=== PATIENT | male | born 1965 | race Caucasian/White ===

== ENCOUNTER → 2016-05-02 | Outpatient (CLI) | payer BC, OTHER ==
[~2016-05-02] MED LIST: ALBUAER2 INH; ALL300 PO; AMLO-110 PO; ASPI325T45 PO; ATOR-22 PO; COEN1CAP37 PO; FENO1TAB PO; FURO-85 PO; MULTTAB58 PO; OMEG5CAP PO; SOTA80TA PO
== END | disposition home or self-care (01) ==
LOC: C.LABMFLN 07:47
PROVIDERS: ATTEND Family Medicine
DX: R30.0 Dysuria (principal)

== ENCOUNTER 2016-07-09 07:21 | Day surgery (SDC) | payer BC ==
[2016-07-09] VITALS (11 sets, daily range): BP systolic 136–155; BP diastolic 65–91; PULSE 67–88; TEMP 36.7–37.1; O2SAT 94–98; Ht 175.3 cm; Wt 131.7 kg
[~2016-07-09] VITALS: Ht 175.3 cm; Wt 131.7 kg
--- NOTE | 2016-07-09 09:57 | DIAGNOSTIC IMAGING REPORT ---
FLUOROSCOPICALLY GUIDED LUMBAR MYELOGRAM CLINICAL HISTORY: Right-sided hip pain. FLUOROSCOPY TIME: 0.5 minutes. A single fluoroscopic spot image. PROCEDURE: The procedure, risks and benefits were discussed with the patient including the risk of spinal headache, bleeding and infection. The patient agreed to the procedure and informed written consent was obtained. The procedure was performed by Dr. Greenwood following a timeout. The left L3-L4 interlaminar space was targeted. Skin overlying the space was prepped and draped in the usual sterile fashion and local anesthesia was achieved with 1% lidocaine. Under intermittent fluoroscopic guidance, a 20-gauge x 3 1/2 in. Sprotte needle was inserted into the thecal sac. A total of 10 cc of Isovue-M 200 was injected into the thecal sac. The patient tolerated the procedure well. There were no immediate complications. IMPRESSION: Successful fluoroscopic guided lumbar mammogram. No immediate complications. Electronically signed by: Lele Greenwood M.D. 07/09/2016 9:55 AM Dictated Date/Time: 07/09/2016 9:54 AM
--- NOTE | 2016-07-09 09:58 | Discharge Instructions ---
Discharge Instructions Procedure Procedure Date: Jul 09, 2016. Reason for visit: Spinal Stenosis. Discharge Discharge Date: Jul 09, 2016. Discharge Diagnosis: same Instructions Activity Recommendations: No limitations Return to School/Work: no limitations Recommended Home Diet: Resume Previous Diet Provider Instructions: ACTIVITY RECOMMENDATIONS: * Rest today. * Resume regular activity in one day. MEDICATIONS: * May take Tylenol or Ibuprofen as needed for pain. DIET: * Resume previous diet. SPECIAL CARE INSTRUCTIONS: Call your doctor if: * Temperature above 101 degrees F. * Pain not relieved by pain medicine ordered. * Increased drainage or redness from incision. * Notify your doctor with any questions or concerns. Call your doctor or go to the nearest Emergency Department if you experience: * Increased chest pain or shortness of breath. FOLLOW UP VISIT: Follow-up with Referring Physician as scheduled. Allergies Coded Allergies: No Known Allergies (Verified , 07/09/16) Jaylyn Franks Recommendations: Call your doctor if: * Temperature above 101 degrees * Pain not relieved by pain medicine ordered * There is increased drainage or redness from any incision * You have any unanswered questions or concerns. Your Doctors Instructions noted above were prepared by provider Lele Greenwood. Patient Signature Section: Patient Instructions Signature Page Lakhwinder Galloway Patient (or Guardian) Signature/Date: I have read and understand the instructions given to me by my caregivers. Caregiver/RN/Doctor Signature/Date: The above-named patient and/or guardian has received patient instructions on this date. + Original Patient Signature Page (only) stays with chart. Please make copy for patient.
[2016-07-09] MEDS ORDERED: ACETAMINOPHEN 500 MG TAB PO PRN (10:00)
--- NOTE | 2016-07-09 10:29 | DIAGNOSTIC IMAGING REPORT ---
LUMBAR SPINE CT MYELOGRAM HISTORY: Postop. Right hip pain. TECHNIQUE: Multiaxial CT images of the lumbar spine were performed following the intrathecal injection of contrast and reformatted in the sagittal and coronal plane. COMPARISON: Lumbar spine radiograph 11/24/2015. Lumbar spine MRI 02/03/2015. FINDINGS: For the purpose of the report the L5-S1 disc space will be located on axial image 311 of [id number]. Mild dextroscoliosis, unchanged. No fracture or subluxation. Small endplate osteophytes seen throughout the lumbar spine. Moderate disc space narrowing at L5-S1. 2 mm of anterolisthesis of L4 on L5, unchanged. L4 and L5 laminectomies. Mild degenerative changes within the bilateral sacroiliac joints. The visualized retroperitoneal soft tissues are unremarkable. The conus terminates at the T12 level. Mild to moderate facet degenerative changes seen within the lower lumbar spine. L1-L2: Tiny broad-based posterior disc bulge without significant central canal or neural foraminal narrowing. L2-L3: Tiny broad-based posterior disc bulge without significant central canal or neural foraminal narrowing. L3-L4: No disc herniations. Bilateral facet hypertrophy and ligamentum hypertrophy results in mild central canal narrowing. No neural foraminal narrowing. L4-L5: Small broad-based posterior disc bulge. No significant central canal narrowing due to the posterior decompression. Mild bilateral neural foraminal narrowing. L5-S1: No significant central canal narrowing due to the posterior decompression. Moderate bilateral neural foraminal narrowing due to the facet hypertrophy and disc bulge. IMPRESSION: 1. Postoperative changes consistent with L4 and L5 laminectomies. 2. Moderate bilateral neural foraminal narrowing at L5-S1. Mild bilateral neural foraminal narrowing at L4-L5. 3. Mild central canal narrowing at L3-L4. 4. Mild dextroscoliosis. 5. Grade I anterolisthesis of L4 and L5. Electronically signed by: Lele Greenwood M.D. 07/09/2016 10:27 AM Dictated Date/Time: 07/09/2016 10:12 AM
== END 2016-07-09 14:25 | disposition home or self-care (01) ==
LOC: C.ACU 07:21
PROVIDERS: ATTEND Orthopaedic Surgery Orthopaedic Surgery of the Spine
DX: M48.06 Spinal stenosis, lumbar region (principal)

== ENCOUNTER → 2016-07-24 | Outpatient (CLI) | payer BC ==
[2016-07-24 13:25] LABS: ALT/SGPT 25 U/L (12-78); BLOOD UREA NITROGEN 17 mg/dl (7-18); BUN/CREATININE RATIO 17.7 (10-20); CARBON DIOXIDE 28 mmol/L (21-32); CHLORIDE 105 mmol/L (98-107); CHOLESTEROL 118 mg/dl (0-200); CHOLESTEROL/HDL RATIO 3.4; CREATININE 0.97 mg/dl (0.60-1.40); GLUCOSE 129 mg/dl (70-99); HDL CHOLESTEROL 35 mg/dl; LDL CHOLESTEROL CALCULATED 24 mg/dl; POTASSIUM 4.3 mmol/L (3.5-5.1); SODIUM 139 mmol/L (136-145); TRIGLYCERIDES 293 mg/dl (0-150); URIC ACID 5.6 mg/dl (2.6-7.2); VERY LOW DENSITY LIPOPROT CALC 59 mg/dl
[2016-07-24 13:31] LABS: ALB/GLOB RATIO 1.2 (0.9-2); ALKALINE PHOSPHATASE 42 U/L (45-117); AST/SGOT 11 U/L (15-37)
[2016-07-24 13:53] LABS: CALCIUM 9.7 mg/dl (8.5-10.1)
[2016-07-24 14:45] LABS: ESTIMATED AVERAGE GLUCOSE 148 mg/dl; HA1C FLAG Normal (Normal)
== END | disposition home or self-care (01) ==
LOC: C.LABMFLN 10:19
PROVIDERS: ATTEND Family Medicine
DX: I48.0 Paroxysmal atrial fibrillation (principal); I89.0 Lymphedema, not elsewhere classified

== ENCOUNTER → 2016-07-26 | Outpatient (CLI) | payer BC | END | disposition home or self-care (01) | LOC: C.LABMFLN 09:40 | PROVIDERS: ATTEND Family Medicine | DX: E11.9 Type 2 diabetes mellitus without complications (principal) ==

== ENCOUNTER → 2017-07-30 | Outpatient (CLI) | payer BC ==
[~2017-07-30] MED LIST changes: +ASPECOTC PO; -ASPI325T45 PO; -MULTTAB58 PO
[2017-07-30 13:05] LABS: ALT/SGPT 28 U/L (12-78); BLOOD UREA NITROGEN 17 mg/dl (7-18); CALCIUM 10.5 mg/dl (8.5-10.1); CARBON DIOXIDE 27 mmol/L (21-32); CREATININE 0.87 mg/dl (0.60-1.40); GLUCOSE 135 mg/dl (70-99); POTASSIUM 4.3 mmol/L (3.5-5.1); SODIUM 140 mmol/L (136-145)
[2017-07-30 13:10] LABS: HEMOGLOBIN A1C 6.8 % (4.5-5.6)
[2017-07-30 13:19] LABS: CREATININE RANDOM URINE 38.4 mg/dl
== END | disposition home or self-care (01) ==
LOC: C.LABMFLN 07:28
PROVIDERS: ATTEND Family Medicine
DX: I10 Essential (primary) hypertension (principal); E78.5 Hyperlipidemia, unspecified; E11.9 Type 2 diabetes mellitus without complications